=== PATIENT | male | born 1980 | race Two or more races ===

== ENCOUNTER 2025-08-16 07:00 | Day surgery (SDC) | payer OTHER, SELFPAY ==
[2025-08-16] VITALS (11 sets, daily range): BP systolic 113–141; BP diastolic 78–94; PULSE 57–93; RESP 15–21; TEMP 36.2–36.6; O2SAT 96–100; BMI 30.3
[2025-08-16] MEDS: SODIUM CHLORIDE 0.9% 500 ML 500 ML 100 ML IV (08:05)
[2025-08-16] MEDS: fentaNYL CIT INJ 50 mCg/ML AMP 2ML (ASD USE ONLY) IVP (08:08)
[2025-08-16] MEDS: MIDAZOLAM INJ 1 MG/ML VIAL 2 ML (ASD USE ONLY) 2 MG IVP (08:08)
[2025-08-16] MEDS: ONDANSETRON INJ 2 MG/ML INJ 2 ML 4 MG IV (08:28)
== END 2025-08-16 09:10 | disposition home or self-care (01) ==
PROVIDERS: Referring Provider Surgery; Visit Provider Surgery
PROC: 0DBE8ZX Excision of Large Intestine, Via Natural or Artificial Opening Endoscopic, Diagnostic (ICD-10-PCS; CPT 45380; principal; 2025-08-16 08:00)
DX: Z12.11 Encounter for screening for malignant neoplasm of colon (principal); D12.3 Benign neoplasm of transverse colon; D12.5 Benign neoplasm of sigmoid colon; K64.1 Second degree hemorrhoids
CPT/HCPCS: 45385; 45380; A4217; A4649; J1200; J2250; J2405; J3010; J7999